=== PATIENT | male | born 1940 | race Asian ===

== ENCOUNTER 2019-05-13 06:14 | Emergency (ER) | payer OTHER ==
[~2019-05-13] VITALS: Ht 172.7 cm; Wt 106.4 kg
[2019-05-13 07:48] VITALS: BP 106/51
== END 2019-05-13 07:48 | disposition home or self-care (01) ==
LOC: ED 06:14
DX: M54.32 Sciatica, left side (principal); I10 Essential (primary) hypertension; E11.9 Type 2 diabetes mellitus without complications; E78.00 Pure hypercholesterolemia, unspecified